=== PATIENT | male | born 1950 | race Caucasian/White ===

== ENCOUNTER 2023-04-06 05:37 | Emergency (ER) | payer MEDICARE ==
[2023-04-06 05:59] LABS: #Eosinphils 0.1 10x3/uL (0.0-0.5); #Monocytes 0.5 10x3/uL (0.0-1.1); #Neutrophils 4.2 10x3/uL (1.5-8.4); %Basophils 0.3 % (0.0-2.0); %Eosinophils 1.3 % (0.0-6.0); %Lymphocytes 28.7 % (18.0-47.0); %Monocytes 7.4 % (0.0-10.0); %Neutrophils 62.2 % (40.0-75.0); Hemoglobin 13.2 g/dL (13.5-17.5); Mean Corpuscular HGB CONC 34.1 g/dL (32.0-36.0); Mean Corpuscular Hemoglobin 33.2 pg (27.0-33.0); Mean Corpuscular Volume 97.2 fl (81.2-95.1); Mean Platelet Volume 10.7 fl (7.4-10.4); Platelet Count 157 10x3/uL (150-450); RBC Distribution Width 12.7 % (11.5-14.5); Red Blood Cell (RBC) Count 3.98 10x6/uL (4.32-5.72); White Blood Cell (WBC) Count 6.8 10x3/uL (3.5-10.5)
[2023-04-06] MEDS ORDERED: Magnesium 2 GM/50 ML BAG (IN WATER) ONE (06:02)
[2023-04-06] MEDS ORDERED: Ondansetron PF 4 MG/2 ML Vial ONE (06:02)
[2023-04-06 06:13] LABS: INR-International Normal Ratio 1.1; PTT 28.9 sec (22.0-33.0)
[2023-04-06 06:17] LABS: ALT (SGPT) 20 U/L (8-55); AST (SGOT) 19 U/L (5-34); Albumin 4.2 g/dL (3.4-4.8); Alkaline Phosphatase 77 U/L (40-110); Anion Gap 14 mmol/L (10-20); BUN (Urea Nitrogen) 23 mg/dL (8.4-25.7); Bilirubin, Total 0.6 mg/dL (0.2-1.2); Calc. Creatinine Clearance 0 mL/min (70-130); Carbon Dioxide 21 mmol/L (23-31); Chloride 107 mmol/L (98-107); Estimated GFR 62; Globulin 2.8 g/dL (2.4-3.5); Glucose 128 mg/dL (83-110); Lipase 17 U/L (8-78); Potassium 4.2 mmol/L (3.5-5.1); Sodium 138 mmol/L (136-145)
[2023-04-06 08:36] LABS: Bilirubin Neg (Negative); Blood, Urine Negative (Negative); Clarity Clear (Clear); Glucose, Urine (Dipstick) Normal (Negative); Ketone, Urine Negative (Negative); Leukocyte Negative (Negative); Nitrite Negative (Negative); Protein, Urine (Dipstick) Negative (Neg-Trace); Urobilinogen Normal mg/dL (Less than 2)
[2023-04-06 08:50] LABS: Bacteria/HPF None Seen HPF (None Seen); CAUTI Indications for Culture Pelvic or flank pain; RBC/HPF 0-3 HPF (0-3); Squamous Epithelial None Seen HPF (0-3); WBC/HPF None Seen HPF (0-3)
[2023-04-06 08:51] LABS: Urine Culture Reflex No No
[2023-04-06 08:55] LABS: Actual Bicarbonate (HCO3v) 23.4 mEq/L (22-28); Base Excess -2.4 mEq/L (-2 - +2); Chloride (VBG) 105 mmol/L (98-106); Hematocrit-VBG 37 % (42.0-52.0); Hemoglobin (Hb) 12.7 g/dL (12.6-17.4); Potassium (VBG) 4.62 mmol/L (3.70-5.30); Puncture Site Other Site; RapidComm Collect By CBN; Sodium 137.9 mmol/L (133-146); pH (venous) 7.341 (7.32-7.43)
== END 2023-04-06 09:40 | disposition home or self-care (01) ==
LOC: CSHERS 05:37
DX: E86.0 Dehydration (principal); M10.9 Gout, unspecified; I25.10 Atherosclerotic heart disease of native coronary artery without angina pectoris; I11.0 Hypertensive heart disease with heart failure; I50.9 Heart failure, unspecified; K21.9 Gastro-esophageal reflux disease without esophagitis; E78.5 Hyperlipidemia, unspecified; Z79.899 Other long term (current) drug therapy; Z79.82 Long term (current) use of aspirin
CPT/HCPCS: 36415; 71045; 80053; 81001; 82550; 82805; 83605; 83690; 83735; 83880; 84443; 84484; 85025; 85610; 85730; 93005; 96361; 96365; 96375; J2405; J3475

== ENCOUNTER 2024-07-22 11:31 | Emergency (ER) | payer MEDICARE ==
[2024-07-22] MEDS ORDERED: Acetaminophen/Codeine 30-300mg Tablet ONE (12:30)
[2024-07-22 13:08] LABS: #Basophils 0.04 10x3/uL (0.0-0.2); #Eosinphils 0.03 10x3/uL (0.0-0.5); #Monocytes 0.93 10x3/uL (0.0-1.1); #Neutrophils 6.53 10x3/uL (1.5-8.4); %Basophils 0.4 % (0.0-2.0); %Eosinophils 0.3 % (0.0-6.0); %Lymphocytes 23.6 % (18.0-47.0); %Monocytes 9.4 % (0.0-10.0); Hematocrit 44.9 % (38.8-50.0); Hemoglobin 15.3 g/dL (13.5-17.5); Mean Corpuscular HGB CONC 34.1 g/dL (32.0-36.0); Mean Corpuscular Hemoglobin 32.6 pg (27.0-33.0); Mean Corpuscular Volume 95.7 fL (81.2-95.1); Mean Platelet Volume 10.3 fL (7.4-10.4); Platelet Count 180 10x3/uL (150-450); RBC Distribution Width 12.6 % (11.5-14.5); Red Blood Cell (RBC) Count 4.69 10x6/uL (4.32-5.72); White Blood Cell (WBC) Count 9.9 10x3/uL (3.5-10.5)
[2024-07-22 13:24] LABS: ALT (SGPT) 19 U/L (8-55); AST (SGOT) 17 U/L (5-34); Albumin 3.8 g/dL (3.4-4.8); Alkaline Phosphatase 104 U/L (40-110); Anion Gap 12 mmol/L (10-20); BUN (Urea Nitrogen) 17 mg/dL (8.4-25.7); Calc. Creatinine Clearance 0 mL/min (70-130); Calcium 9.4 mg/dL (7.8-10.44); Carbon Dioxide 24 mmol/L (23-31); Chloride 106 mmol/L (98-107); Estimated GFR 53; Globulin 3.5 g/dL (2.4-3.5); Glucose 89 mg/dL (83-110); Potassium 4.1 mmol/L (3.5-5.1); Protein, Total 7.3 g/dL (5.8-8.1); Sodium 138 mmol/L (136-145)
[2024-07-22] MEDS ORDERED: Vancomycin 1 GM VIAL ONE (14:35)
[2024-07-22] MEDS ORDERED: Cefepime 2 GM VIAL ONE (14:36)
== END 2024-07-22 16:39 | disposition home or self-care (01) ==
LOC: CSHERS 11:31
DX: L03.115 Cellulitis of right lower limb (principal); K21.9 Gastro-esophageal reflux disease without esophagitis; I11.0 Hypertensive heart disease with heart failure; I50.9 Heart failure, unspecified; E78.5 Hyperlipidemia, unspecified; Z79.01 Long term (current) use of anticoagulants; Z79.899 Other long term (current) drug therapy
CPT/HCPCS: 73630; 80053; 83605; 85025; J0692; J3370; 36415; 96374; 96375

== ENCOUNTER 2024-10-18 18:16 | Emergency (ER) | payer MEDICARE ==
[2024-10-18] MEDS ORDERED: Tetracaine 0.5% PF 4 ML BOT ONE (19:18)
[2024-10-18] MEDS ORDERED: Fluorescein Opthalmic Strip ONE (19:18)
== END 2024-10-18 19:44 | disposition home or self-care (01) ==
LOC: CSHERS 18:16
DX: S05.02XA Injury of conjunctiva and corneal abrasion without foreign body, left eye, initial encounter (principal); I25.10 Atherosclerotic heart disease of native coronary artery without angina pectoris; I11.0 Hypertensive heart disease with heart failure; I50.9 Heart failure, unspecified; W22.8XXA Striking against or struck by other objects, initial encounter
CPT/HCPCS: 99283